=== PATIENT | female | born 1965 | race Caucasian/White ===

== ENCOUNTER 2018-11-27 08:00 | Emergency (ER) | payer SELFPAY ==
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
[2018-11-27] MEDS ORDERED: traMADol TAB* 50 MG PO ONE (10:08)
[2018-11-27 10:20] VITALS: BP 172/111
== END 2018-11-27 10:33 | disposition home or self-care (01) ==
LOC: ED 08:00
DX: S42.001A Fracture of unspecified part of right clavicle, initial encounter for closed fracture (principal); M25.511 Pain in right shoulder; F17.210 Nicotine dependence, cigarettes, uncomplicated; W19.XXXA Unspecified fall, initial encounter; Y92.9 Unspecified place or not applicable; R03.0 Elevated blood-pressure reading, without diagnosis of hypertension; R01.1 Cardiac murmur, unspecified
CPT/HCPCS: 99282; A9270-GY